=== PATIENT | female | born 1960 | race Caucasian/White ===

== ENCOUNTER 2017-03-17 13:43 | Emergency (ER) | payer MEDICARE ==
[~2017-03-17 13:43] MED LIST: ALPRAZOLAM0.5 MG PO; ASPIRIN325 MG PO; COUMADIN2 MG PO; COUMADIN4 MG PO; ECOTRIN81 MG PO; LASIX20 MG PO; LIPITOR TAB 2020 MG PO; METOPROLOL TART50 MG PO; NEURONTIN 300300 MG PO; NORCO 7.5-3251 EACH PO; PLAVIX 75 MG TA75 MG PO; POTASSIUM CHLO20 ME1 PO; TYLENOL 325MG325 MG PO
== END 2017-03-17 16:25 | disposition home or self-care (01) ==
LOC: ER1 13:43
DX: S92.355A Nondisplaced fracture of fifth metatarsal bone, left foot, initial encounter for closed fracture (principal); R79.1 Abnormal coagulation profile; I10 Essential (primary) hypertension; I25.810 Atherosclerosis of coronary artery bypass graft(s) without angina pectoris; F17.210 Nicotine dependence, cigarettes, uncomplicated; Z86.711 Personal history of pulmonary embolism; Z86.718 Personal history of other venous thrombosis and embolism; Z86.73 Personal history of transient ischemic attack (TIA), and cerebral infarction without residual deficits; Z95.1 Presence of aortocoronary bypass graft; X50.1XXA Overexertion from prolonged static or awkward postures, initial encounter; Y92.009 Unspecified place in unspecified non-institutional (private) residence as the place of occurrence of the external cause; Z79.02 Long term (current) use of antithrombotics/antiplatelets; Z79.82 Long term (current) use of aspirin; Z79.01 Long term (current) use of anticoagulants; Z79.899 Other long term (current) drug therapy
CPT/HCPCS: 29515; 73610; 73630; 85610; 85730; 99283

== ENCOUNTER 2020-12-01 22:57 | Emergency (ER) | payer BC ==
[~2020-12-01 22:57] MED LIST changes: +BOOST237 ML PO; +CYMBALTA60 MG PO; +IMDUR ER TAB 3030 MG PO; +LIORESAL TAB 1010 MG PO; -NEURONTIN 300300 MG PO; +NEURONTIN 400400 MG PO; +PRINIVIL5 MG PO; +RANEXA500 MG PO; +VISTARIL 25 MG25 MG PO; +WELLBUTRIN SR150 M1 PO; +XARELTO15 MG PO
[2020-12-02 03:47] LABS: HEMOGLOBIN 13.1 gm/dl (12.3-15.3); RED BLOOD COUNT 4.21 M/UL (4.00-5.10); WHITE BLOOD COUNT 9.1 K/UL (4.5-11.0)
[2020-12-02 04:05] LABS: BUN/CREATININE RATIO 20 (0-10)
[2020-12-02] MEDS ORDERED: CEPHALEXIN500 MG PO (05:00)
== END 2020-12-02 05:21 | disposition home or self-care (01) ==
LOC: ER1 22:57
PROVIDERS: Physician Assistant
DX: L03.116 Cellulitis of left lower limb (principal); I25.2 Old myocardial infarction; I10 Essential (primary) hypertension; F17.210 Nicotine dependence, cigarettes, uncomplicated; Z86.73 Personal history of transient ischemic attack (TIA), and cerebral infarction without residual deficits; Z95.1 Presence of aortocoronary bypass graft; Z79.01 Long term (current) use of anticoagulants
CPT/HCPCS: 36415; 80053; 83605; 83880; 85025; 85379; 85610; 85652; 85730; 86140; 87040; 99283

== ENCOUNTER 2021-01-12 18:24 | Emergency (ER) | payer BC ==
[~2021-01-12 18:24] MED LIST changes: +CEPHALEXIN500 MG PO
[2021-01-12 19:30] LABS: HEMOGLOBIN 14.1 gm/dl (12.3-15.3); RED BLOOD COUNT 4.52 M/UL (4.00-5.10); WHITE BLOOD COUNT 10.4 K/UL (4.5-11.0)
[2021-01-12 19:51] LABS: BUN/CREATININE RATIO 18 (0-10)
[2021-01-12] MEDS ORDERED: IBUPROFEN800 MG PO (21:26)
[2021-01-12] MEDS ORDERED: ZOFRAN 4 MG TAB4 MG PO (21:26)
[2021-01-12] MEDS ORDERED: OMNICEF 300 MG300 MG PO (21:26)
== END 2021-01-12 21:44 | disposition home or self-care (01) ==
LOC: ER1 18:24
PROVIDERS: Emergency Medicine
DX: N30.00 Acute cystitis without hematuria (principal); J44.9 Chronic obstructive pulmonary disease, unspecified; I11.9 Hypertensive heart disease without heart failure; F17.210 Nicotine dependence, cigarettes, uncomplicated; Z95.1 Presence of aortocoronary bypass graft; Z86.73 Personal history of transient ischemic attack (TIA), and cerebral infarction without residual deficits
CPT/HCPCS: 70450; 71045; 80053; 81001; 83605; 83690; 84484; 85025; 87040; 93005; 96365; 99285; J0696

== ENCOUNTER → 2021-06-03 | Outpatient (CLI) | payer BC ==
[~2021-06-03] MED LIST changes: +IBUPROFEN800 MG PO; +OMNICEF 300 MG300 MG PO; +ZOFRAN 4 MG TAB4 MG PO
== END ==
LOC: RAD 15:36
DX: M25.552 Pain in left hip (principal); M54.5 Low back pain; M47.816 Spondylosis without myelopathy or radiculopathy, lumbar region
CPT/HCPCS: 72100; 73502

== ENCOUNTER → 2021-09-15 | Outpatient (CLI) | payer MEDICARE | LOC: CT 08-25 10:00 | DX: M21.952 Unspecified acquired deformity of left thigh (principal); M25.552 Pain in left hip; R31.29 Other microscopic hematuria; N39.0 Urinary tract infection, site not specified; R33.9 Retention of urine, unspecified; N20.0 Calculus of kidney | CPT/HCPCS: 36415; 73702; 82565; 84520; Q9967 ==

== ENCOUNTER → 2021-09-29 | Outpatient (CLI) | payer MEDICARE | LOC: EXRD 10:23 | DX: M79.641 Pain in right hand (principal); M19.031 Primary osteoarthritis, right wrist | CPT/HCPCS: 73130 ==

== ENCOUNTER → 2022-01-07 | Outpatient (CLI) | payer MEDICARE | LOC: KOH-I 10:55 | DX: F17.210 Nicotine dependence, cigarettes, uncomplicated (principal); R91.8 Other nonspecific abnormal finding of lung field; I71.2 Thoracic aortic aneurysm, without rupture | CPT/HCPCS: 71271 ==

== ENCOUNTER 2022-03-15 15:28 | Observation (INO) | payer MEDICARE ==
[~2022-03-15] VITALS: Ht 165.1 cm; Wt 109.8 kg
[~2022-03-15 15:28] MED LIST changes: +BACLOFEN20 MG PO; -LIORESAL TAB 1010 MG PO; +WELLBUTRIN 75 M75 MG PO; -WELLBUTRIN SR150 M1 PO
[2022-03-15 17:24] LABS: HEMOGLOBIN 14.2 gm/dl (12.3-15.3); RED BLOOD COUNT 4.59 M/UL (4.00-5.10); WHITE BLOOD COUNT 11.6 K/UL (4.5-11.0)
[2022-03-15 18:08] LABS: BUN/CREATININE RATIO 22 (0-10)
[2022-03-16] MEDS ORDERED: METOPROLOL TART25 MG PO (10:50)
[2022-03-16] MEDS ORDERED: MYRBETRIQ50 MG PO (10:50)
[2022-03-16] MEDS ORDERED: HYDROXYZINE HCL50 MG PO (10:50)
[2022-03-16] MEDS ORDERED: ZOFRAN 4 MG TAB4 MG PO (10:51)
[2022-03-16] MEDS ORDERED: NITROGLYCERIN0.4 MG SL (10:51)
[2022-03-16] MEDS ORDERED: BETHANECHOL CHL25 MG PO (10:51)
[2022-03-16] MEDS ORDERED: ENTRESTO 24 MG1 EACH PO (10:51)
[2022-03-16] MEDS ORDERED: MELATONIN10 M2 PO (10:52)
[2022-03-16] MEDS ORDERED: ASPIRIN EC81 MG PO (10:52)
[2022-03-16] MEDS ORDERED: MONISTAT 745 GM VG (10:53)
--- NOTE | 2022-03-16 11:31 | NUR ---
GIO LUA PA-C GAVE ORDER FOR ACETAMINOPHEN [id number] PRN FOR PAIN.
[2022-03-17 02:58] LABS: HEMOGLOBIN 13.2 gm/dl (12.3-15.3); RED BLOOD COUNT 4.34 M/UL (4.00-5.10); WHITE BLOOD COUNT 10.1 K/UL (4.5-11.0)
[2022-03-17 03:51] LABS: BUN/CREATININE RATIO 26 (0-10)
[2022-03-17] MEDS ORDERED: OMNICEF 300 MG300 MG PO (15:36)
[2022-03-17] MEDS ORDERED: LIPITOR TAB 2020 MG PO (15:36)
== END 2022-03-17 19:40 | disposition home or self-care (01) ==
LOC: ER1 15:28 → CDU 20:10 → MED SURG 4 03-16 09:40
PROVIDERS: Physician Assistant; ADMIT Internal Medicine
DX: R07.89 Other chest pain (principal); Z20.822 Contact with and (suspected) exposure to COVID-19; I11.0 Hypertensive heart disease with heart failure; I50.22 Chronic systolic (congestive) heart failure; I69.354 Hemiplegia and hemiparesis following cerebral infarction affecting left non-dominant side; E78.5 Hyperlipidemia, unspecified; I25.10 Atherosclerotic heart disease of native coronary artery without angina pectoris; J44.9 Chronic obstructive pulmonary disease, unspecified; N23 Unspecified renal colic; F17.210 Nicotine dependence, cigarettes, uncomplicated; M65.321 Trigger finger, right index finger; E66.9 Obesity, unspecified; Z68.41 Body mass index [BMI] 40.0-44.9, adult; Z79.01 Long term (current) use of anticoagulants; Z79.02 Long term (current) use of antithrombotics/antiplatelets; Z79.82 Long term (current) use of aspirin; Z79.899 Other long term (current) drug therapy; Z86.711 Personal history of pulmonary embolism; Z95.1 Presence of aortocoronary bypass graft
CPT/HCPCS: ECHO; 71045; 73100; 80048; 80053; 81001; 82550; 82553; 83735; 84484; 85025; 85027; 85379; 93005; 93306; 94760; 96374; 99285; G0378; J0696; Q9957; U0002